=== PATIENT | male | born 1990 | race African-American/Black ===

== ENCOUNTER 2018-06-13 00:45 | Emergency (ER) | payer OTHER ==
[~2018-06-13] VITALS: Ht 177.8 cm; Wt 60.8 kg
[2018-06-13] MEDS ORDERED: HYDROCODONE/APAP 5-325MG TABLET PO ONE (02:30)
[2018-06-13] MEDS ORDERED: ASPIRIN 81 MG TAB.CHEW PO ONE (02:30)
--- NOTE | 2018-06-13 02:43 | NUR ---
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
--- NOTE | 2018-06-13 02:57 | NUR ---
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
[2018-06-13] MEDS ORDERED: ASPIRIN 81 MG TAB.CHEW ONE (02:58)
--- NOTE | 2018-06-13 02:58 | NUR ---
Pt. ambulated into ED w/ c/o 8/10 CP x 4 days, hx of smoking
[2018-06-13] MEDS ORDERED: HYDROCODONE/APAP 5-325MG TABLET ONE (02:59)
[2018-06-13 03:04] LABS: BASOPHILS % (AUTO) 0.9 % (0.0-2.0); EOSINOPHILS # (AUTO) 0.2 K/uL (0.0-0.7); EOSINOPHILS % (AUTO) 3.5 % (0.0-7.0); HEMATOCRIT 44.5 % (36.7-47.1); HEMOGLOBIN 14.9 g/dL (12.5-16.3); LYMPHOCYTES # (AUTO) 2.6 K/uL (20.0-40.0); LYMPHOCYTES % (AUTO) 55.4 % (20.5-51.5); MEAN CORPUSCULAR HEMOGLOBIN 27.2 uug (23.8-33.4); MEAN CORPUSCULAR HGB CONC 33 g/dL (32.5-36.3); MEAN CORPUSCULAR VOLUME 81.2 fL (73.0-96.2); MONOCYTES # (AUTO) 0.5 K/uL (2.0-10.0); MONOCYTES % (AUTO) 10.7 % (0.0-11.0); NEUTROPHILS # (AUTO) 1.4 K/uL (1.8-8.9); NEUTROPHILS % (AUTO) 29.5 % (38.5-71.5); PLATELET COUNT (AUTO) 189 K/uL (152-348); RED BLOOD CELL COUNT(AUTO) 5.48 MIL/uL (4.06-5.63); WHITE BLOOD COUNT (AUTO) 4.8 K/uL (3.6-10.2)
[2018-06-13 03:10] LABS: CREATININE 1.1 mg/dL (0.6-1.3)
[2018-06-13 03:22] LABS: BILIRUBIN,DIRECT 0.1 mg/dL (0.0-0.2); BILIRUBIN,TOTAL 0.2 mg/dL (0.2-1.0); TOTAL PROTEIN, SERUM 7.8 g/dL (6.4-8.2)
--- NOTE | 2018-06-13 03:42 | NUR ---
Pt. resting in bed, IV patent - no s/s infiltration/phlebitis, NAD
--- NOTE | 2018-06-13 04:13 | NUR ---
Patient discharged to home in stable conditon. Written and verbal after care instructions given. Patient verbalizes understanding of instructions. Pt. d/c w/ prescription per MD order, d/c papers signed, all belongings w/ pt., ID/IV removed, instructed not to drive, ambulated off unit w/ steady gait, NAD,
== END 2018-06-13 04:15 | disposition home or self-care (01) ==
LOC: ER 00:45
DX: R07.9 Chest pain, unspecified (principal); R20.2 Paresthesia of skin; R11.0 Nausea; F17.290 Nicotine dependence, other tobacco product, uncomplicated; Z71.6 Tobacco abuse counseling
CPT/HCPCS: 36415; 70030-TC; 71045; 85025; 93005; A4663